=== PATIENT | male | born 1995 | race Caucasian/White ===

== ENCOUNTER 2017-02-13 20:41 | Emergency (ER) | payer OTHER ==
[~2017-02-13] VITALS: Ht 190.5 cm; Wt 85.0 kg
[~2017-02-13 20:41] MED LIST: EPP3/2 IM
[2017-02-13 20:45] VITALS: TEMP 37.2; Ht 190.5 cm; Wt 85.0 kg
--- NOTE | 2017-02-13 21:48 | EMERGENCY ROOM VISIT NOTE ---
ED Visit Note First contact with patient: 21:39 CHIEF COMPLAINT: Left index Finger laceration HISTORY OF PRESENT ILLNESS: This 21-year-old male patient cut the tip of his left index finger with a knife when he was trying to break up ice.. The bleeding has stopped. Denies weakness or numbness of the finger. The patient is right-hand dominant. The patient's immunizations are up-to-date. REVIEW OF SYSTEMS: 6 system review was performed and was negative unless stated otherwise in history of present illness. PMH: The patient is healthy; there is no significant medical or surgical history. SOCIAL HISTORY: Patient is a [employer] student. The patient admits to occasional alcohol use. PHYSICAL EXAM: Vital Signs: Were reviewed Reviewed Nurse's notes. GEN.: 21-year -old male appears in no acute distress. MENTAL Status: Alert and oriented 3. LEFT INDEX FINGER: There is a 1 cm flap-like laceration on the tip of the finger without any active bleeding. The wound looks clean. EMERGENCY DEPARTMENT COURSE: The wound was cleansed with saline and then dried. Dermabond was applied. Patient was discharged home in stable condition. DIAGNOSIS: 1 cm left index Finger laceration DISCHARGE INSTRUCTIONS & TREATMENT: Watch the area carefully for signs of infection such as redness, swelling, or tenderness. If any should occur, seek medical attention for antibiotics. Do not apply any antibiotic ointment to the area. You may get the area wet but do not submerge her hand in water for any extended period of time. Current/Historical Medications Scheduled Epinephrine (Epipen), 0.3 MG IM UD Allergies Coded Allergies: Penicillins (Verified Allergy, Unknown, father allergic told to avoid, ) Uncoded Allergies: FIRE ANTS (Allergy, Unknown, ANAPHYLAXIS, 10/01/13) Vital Signs Date Time Temp Pulse Resp B/P (MAP) Pulse Ox O2 Delivery O2 Flow Rate FiO2 02/13/17 20:45 37.2 83 18 131/78 96 Room Air Departure Information Referrals No Doctor, Assigned (PCP) Patient Instructions [facility]
[2017-02-13 21:50] VITALS: BP 127/85; PULSE 90; O2SAT 99
== END 2017-02-13 21:50 | disposition home or self-care (01) ==
LOC: C.EDB 20:42 → C.EDD 21:50
DX: S61.211A Laceration without foreign body of left index finger without damage to nail, initial encounter (principal); W26.0XXA Contact with knife, initial encounter; Y93.89 Activity, other specified

== ENCOUNTER 2017-02-15 03:34 | Emergency (ER) | payer OTHER ==
[~2017-02-15] VITALS: Ht 190.5 cm; Wt 85.0 kg
[2017-02-15 03:40] VITALS: BP 125/70; TEMP 36.7; Ht 190.5 cm; Wt 85.0 kg
--- NOTE | 2017-02-15 04:17 | EMERGENCY ROOM VISIT NOTE ---
ED Visit Note First contact with patient: 03:58 CHIEF COMPLAINT: Wound check HISTORY OF PRESENT ILLNESS: This 21-year-old male patient presents to the emergency department ambulatory for a recheck of laceration to the left second finger. The patient was seen here yesterday and had a superficial skin flap repaired with Dermabond. He states that tonight he was picking up a bottle of whiskey and the Dermabond became dislodged. REVIEW OF SYSTEMS: A 6 system review of systems was completed with positives and pertinent negatives listed in the HPI. ALLERGIES: Penicillin MEDICATIONS: Unchanged from previous PMH: Unchanged from previous visit. PHYSICAL EXAM: Vital Signs reviewed, see Nurse's notes. Patient is afebrile, vital signs stable. GENERAL: This is 21-year-old male, awake, alert, well appearing, no acute distress MUSCULOSKELETAL: Inspection of the left second finger reveals a superficial skin avulsion. The Dermabond has been dislodged. The very superficial flap of skin is attached to the underside of the Dermabond. SKIN: No sign of cellulitis or abscess. NEURO: No sensory or motor deficits noted. EMERGENCY DEPARTMENT COURSE AND DECISION MAKING: I examined the patient. The Dermabond and superficial skin flap removed. A clot was dislodged. The wound was cleaned. Gelfoam and bulky dressing were placed. The patient tolerated the procedure well. Current/Historical Medications Scheduled PRN Epinephrine (Epipen), 0.3 MG IM UD PRN for ALLERGIC REACTION Allergies Coded Allergies: Penicillins (Verified Allergy, Unknown, father allergic told to avoid, 03/24) Uncoded Allergies: FIRE ANTS (Allergy, Unknown, ANAPHYLAXIS, 10/01/13) Vital Signs Date Time Temp Pulse Resp B/P (MAP) Pulse Ox O2 Delivery O2 Flow Rate FiO2 02/15/17 05:03 64 18 99 02/15/17 03:40 36.7 89 18 125/70 95 Room Air Medications Administered Medications (Trade) Dose Ordered Sig/Freida Route Start Time Stop Time Status Last Admin Dose Admin Gelatin (Surgifoam Sponge 12-7MM (SMALL)) 1 ea NOW ONCE EXT 02/15/17 04:30 02/15/17 04:31 DC 02/15/17 04:27 1 EA Departure Information Impression Primary Impression: Encounter for wound re-check Dispostion Home / Self-Care Condition GOOD Referrals No Doctor, Assigned (PCP) Patient Instructions ED Avulsion Dermal, My [facility] Additional Instructions Keep dressing in place for 48 hrs, then remove. Soak foam in water until it falls off easily, then clean wound daily, cover with an antibiotic ointment and keep covered until it heals. Return for any signs of infection (increasing redness, swelling, drainage, fever). Ice and elevate for swelling and pain. Keep covered when in sun until fully healed then SPF 50 or higher for one year. Vitamin E oil if desired two weeks after fully healed for reduction of scar.
[2017-02-15] MEDS ORDERED: GELATIN SPONGE 12-7MM ONE (04:18)
[2017-02-15] MEDS ORDERED: GELATIN SPONGE 12-7MM EXT ONE (04:30)
[2017-02-15 05:03] VITALS: PULSE 64; O2SAT 99
== END 2017-02-15 05:04 | disposition home or self-care (01) ==
LOC: C.EDB 03:36 → C.EDC 05:04
DX: S61.211D Laceration without foreign body of left index finger without damage to nail, subsequent encounter (principal); X58.XXXD Exposure to other specified factors, subsequent encounter